=== PATIENT | female | born 2000 | race African-American/Black ===

== ENCOUNTER 2021-01-05 12:22 | Emergency (ER) | payer OTHER ==
[~2021-01-05] VITALS: Ht 154.9 cm; Wt 68.0 kg
[2021-01-05 12:25] VITALS: BP 133/70
[2021-01-05] MEDS ORDERED: NOHOMEMEDICATIONS (12:31)
[2021-01-05] MEDS ORDERED: AMOXICILLIN 50500 MG PO (13:19)
== END 2021-01-05 13:15 | disposition home or self-care (01) ==
LOC: ER 12:22
PROVIDERS: Nurse Practitioner Family
DX: J02.0 Streptococcal pharyngitis (principal); Z20.2 Contact with and (suspected) exposure to infections with a predominantly sexual mode of transmission